=== PATIENT | female | born 1995 | race African-American/Black ===

== ENCOUNTER 2023-03-21 02:37 | Emergency (ER) | payer MEDICAID, SELFPAY ==
[2023-03-21] VITALS (9 sets, daily range): BP systolic 144–177; BP diastolic 93–127; PULSE 73–100; RESP 18–32; O2SAT 98–100; BMI 33.9
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
--- NOTE | 2023-03-21 02:49 | ECG_ITS ---
[facility] Test Date: 2023-03-21 Pat Name: Pedro Pablo Alvarez Department: Room: Gender: Female Registered Nurse: : 1995 Requested By: Ken Cullen Order Number: [id number] Mi MD: Jeff Kern M.D. Measurements Intervals [place] Rate: 84 P: 38 DE: 154 QRS: 26 QRSD: 84 T: -13 QT: 346 QTc: 411 Interpretive Statements SINUS RHYTHM NONSPECIFIC T-WAVE ABNORMALITY No previous ECG available for comparison Electronically Signed On 03-21-2023 11:19:45 CDT by Jeff Kern M.D. [id number]
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
[2023-03-21 03:27] LABS: Basophils % 0.1 %; Hematocrit 36.7 % (36-47); Lymphocytes # 1.2 10^3/uL (0.8-4.8); Lymphocytes % 7.4 %; Mean Corpuscular HGB Conc 34.6 g/dL (30-55); Mean Corpuscular Hemoglobin 31.6 pg (27-33); Mean Corpuscular Volume 91.3 fl (85-98); Mean Platelet Volume 9.7 fL (7.4-10.4); Monocytes # 0.5 10^3/uL (0.2-0.9); Neutrophils % 88.8 %; Nucleated Red Blood Cells % 0 %; Platelet Count 270 10^3/cmm (157-399); Red Blood Count 4.02 10^6/uL (3.85-5.65); Red Cell Distribution Width 14.6 % (12.1-15.1); White Blood Count 16.12 10^3/uL (3.29-11.43)
[2023-03-21 03:37] LABS: INR 0.92 (0.8-1.2)
[2023-03-21 03:42] LABS: Alanine Aminotransferase 15 U/L (0-33); Albumin Level 4.3 g/dL (3.5-5.2); Alcohol Level 15 mg/dL (0-10); Alkaline Phosphatase 71 U/L (35-105); Anion Gap 13.6 (5-19); Aspartate Amino Transferase 19 U/L (0-32); Blood Urea Nitrogen 9 mg/dL (6-20); Calcium 9.5 mg/dL (8.5-10.5); Carbon Dioxide 24 mmol/L (22-29); Chloride 104 mmol/L (98-107); Globulin 4.6 g/dL (1.3-4.6); Glomerular Filtration Rate 105.8 mL/min (90-130); Glucose 138 mg/dL (65-115); Osmolality Calculated 287 mOsm/kg (285-295); Potassium 3.6 mmol/L (3.5-5.1); Sodium 138 mmol/L (136-145); Total Bilirubin 0.5 mg/dL (0.15-1.2); Total Protein 8.9 g/dL (6.6-8.7)
[2023-03-21 03:56] LABS: HCG Qualitative Urine. Negative (Negative)
[2023-03-21] MEDS: ondansetron 2 mg/ML SDV 2 mL 4 MG IVP (04:00)
[2023-03-21] MEDS: morphine 4 mg/mL SDV 1 mL IVP (04:00)
[2023-03-21 04:11] LABS: Add Urine Microscopic? YES; Amphetamines Screen Urine Negative (Negative); Barbiturates Screen Urine Negative (Negative); Benzodiazepines Screen Urine Negative (Negative); Bilirubin Urine Neg (Negative); Blood Urine 2+ (Negative); Cocaine Screen Urine Negative (Negative); Glucose Urine UA Norm (Normal); Ketones Urine Negative (Negative); Leukocyte Esterase Urine 2+ (Negative); Nitrate Urine Negative (Negative); Opiate Screen Urine Negative (Negative); PCP Screen Urine Negative (Negative); Protein Urine Trace (Negative); THC Screen Urine Positive (Negative); Urine Color Light yellow (Yellow); Urobilinogen Urine Neg (Negative); pH Urine 6.5 (5-7)
[2023-03-21 04:12] LABS: Add Urine Culture? No; Amorphous Sediment Urine 1+ /hpf; Bacteria Urine 1+ /hpf; Mucus Urine 2+ /hpf; RBC Urine 0-4 /hpf (0-2); WBC Urine 0-4 /hpf (0-5)
[2023-03-21] MEDS: orphenadrine 30 mg/mL Inj 2 mL 60 MG IVP (04:24)
== END 2023-03-21 06:32 | disposition home or self-care (01) ==
PROVIDERS: Emergency Provider Emergency Medicine
DX: Z04.1 Encounter for examination and observation following transport accident (principal); S80.212A Abrasion, left knee, initial encounter; S80.211A Abrasion, right knee, initial encounter; S70.311A Abrasion, right thigh, initial encounter; V59.88XA Occupant (driver) (passenger) of pick-up truck or van injured in other specified transport accidents, initial encounter
CPT/HCPCS: 70450; 71250; 72125; 73030; 74176; 80053; 80306; 80307; 81001; 81025; 85025; 85610; 86850; 86900; 93005; 96374; 96375; 99285; J2270; J2360; J2405